=== PATIENT | female | born 1985 | race Caucasian/White ===

== ENCOUNTER 2016-11-15 10:30 | Emergency (ER) | payer BC ==
[2016-11-15 10:34] VITALS: TEMP 97.7; BMI 25.7
--- NOTE | 2016-11-15 10:39 | PDOC ---
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 Patient reports waking up this morning with a sudden onset of pressure in the suprapubic area and the LLQ. She states feels like she has a UTI. Patient reports having several episodes of vomiting and diarrhea today. On interview, patient says she feels dehydrated. Patient says she only drank coffee this morning. Patient reports her bowel movement yesterday was normal. Denies fever, chills, cough Denies headache Denies dysuria, hematuria Denies hematochezia Denies hematemesis Denies chest pain and SOB Drug Allergies: Azithromycin (hives) <Jyoti Montes - Last Filed: 11/15/16 13:45> <Rod Douglas - Last Filed: 11/15/16 14:08> - General Chief Complaint: Pain Stated Complaint: ABD PAIN, DIZZINESS Time Seen by Provider: 11/15/16 10:39 Past History <Jyoti Montes - Last Filed: 11/15/16 13:45> - Past Medical History Other medical history: NONE - Surgical History Neurologic Surgery: No (CLAM SHOVEL OPERATOR SHUNT) - Psycho/Social/Smoking Cessation Hx Anxiety: No Suicidal Ideation: No Smoking History: Current every day smoker Number of Cigarettes Smoked Daily: 5 Information on smoking cessation initiated: No Hx Alcohol Use: Yes (SOCIAL) Drug/Substance Use Hx: No Substance Use Type: None <Rod Douglas - Last Filed: 11/15/16 14:08> - Past Medical History Allergies/Adverse Reactions: Allergies Allergy/AdvReac Type Severity Reaction Status Date / Time azithromycin Allergy Verified 11/15/16 10:34 Home Medications: Ambulatory Orders Hydromorphone [Dilaudid -] 2 mg PO Q6H #28 tablet MDD 5 11/15/16 Ondansetron [Zofran *Odt*] 8 mg SL TID #30 od.tablet 11/15/16 Review of Systems - Review of Systems Able to Perform ROS?: Yes Comments:: 11/15/16 10:55 GENERAL/CONSTITUTIONAL:Dizziness. No fever or chills. No weakness. HEAD, EYES, EARS, NOSE AND THROAT: No change in vision. No ear pain or discharge. No sore throat. CARDIOVASCULAR: No chest pain or shortness of breath. RESPIRATORY: No cough, wheezing, or hemoptysis. GASTROINTESTINAL: Abdominal pain, nausea, vomiting, diarrhea. No constipation. GENITOURINARY: No dysuria, frequency, or change in urination. MUSCULOSKELETAL: Back pain. No joint or muscle swelling or pain. No neck pain. SKIN: No rash NEUROLOGIC: No headache, vertigo, loss of consciousness, or change in strength/ sensation. ENDOCRINE: No increased thirst. No abnormal weight change. HEMATOLOGIC/LYMPHATIC: No anemia, easy bleeding, or history of blood clots. ALLERGIC/IMMUNOLOGIC: No hives or skin allergy. <Des,Jyoti - Last Filed: 11/15/16 13:45> *Physical Exam - Vital Signs Last Vital Signs Temp Pulse Resp BP Pulse Ox 97.7 F 56 L 20 149/59 99 11/15/16 10:31 11/15/16 10:31 11/15/16 10:31 11/15/16 10:31 11/15/16 10:31 - Physical Exam Comments: 11/15/16 10:57 GENERAL: Awake, alert, and fully oriented, in no acute distress HEAD: No signs of trauma EYES: PERRLA, EOMI, sclera anicteric, conjunctiva clear ENT: Auricles normal inspection, hearing grossly normal, nares patent, oropharynx clear without exudates. Moist mucosa NECK: Normal ROM, supple, no lymphadenopathy, JVD, or masses LUNGS: Breath sounds equal, clear to auscultation bilaterally. No wheezes, and no crackles HEART: Regular rate and rhythm, normal S1 and S2, no murmurs, rubs or gallops ABDOMEN: Tenderness on palpation in suprapubic area and LLQ. Soft, normoactive bowel sounds. No guarding, no rebound. No masses EXTREMITIES: Normal range of motion, no edema. No clubbing or cyanosis. No cords, erythema, or tenderness NEUROLOGICAL: Cranial nerves II through XII grossly intact. Normal speech, normal gait SKIN: Warm, Dry, normal turgor, no rashes or lesions noted. <Des,Jyoti - Last Filed: 11/15/16 13:45> - Vital Signs Last Vital Signs Temp Pulse Resp BP Pulse Ox 97.7 F 56 L 20 149/59 99 11/15/16 10:31 11/15/16 10:31 11/15/16 10:31 11/15/16 10:31 11/15/16 10:31 <Rod Douglas - Last Filed: 11/15/16 14:08> ED Treatment Course - LABORATORY CBC & Chemistry Diagram: 11/15/16 10:50 11/15/16 10:50 - RADIOLOGY Radiograph Interpretation: 11/15/16 13:[address] with contrast impression reported by Dr. Ray Bang: 3 mm obstructing calculus left UVJ <Jyoti Montes - Last Filed: 11/15/16 13:45> - LABORATORY CBC & Chemistry Diagram: 11/15/16 10:50 11/15/16 10:50 <Rod Douglas - Last Filed: 11/15/16 14:08> Medical Decision Making - Medical Decision Making 11/15/16 10:59 Patient is a 31 year old female who presents to the ER with suprapubic and LLQ pain since this morning. Patient had episodes of nonbilious/nonbloody vomiting and diarrhea today. Patient's CBC, chemistry, and urine will be taken. Further testing will be determined based on the lab results. 11/15/16 11:[address] ordered to r/o diverticulitis <JyotiJyoti - Last Filed: 11/15/16 13:45> *DC/Admit/Observation/Transfer - Attestations Scribe Attestion: 11/15/16 11:06 Documentation prepared by Jyoti Montes, acting as medical orderly for Rod Douglas DO. <JyotiJyoti - Last Filed: 11/15/16 13:45> - Discharge Dispostion Admit: No - Attestations Physician Attestion: 11/15/16 10:39 I, Dr. Rod Douglas, attest that this document has been prepared under my direction and personally reviewed by me in its entirety. I further attest, that it accurately reflects all work, treatment, procedures and medical decision -making performed by me. <Rod Douglas - Last Filed: 11/15/16 14:08> Diagnosis at time of Disposition: Ureteral calculus, left, Hydroureter on left - Discharge Dispostion Disposition: HOME Condition at time of disposition: Good - Prescriptions Prescriptions: Hydromorphone [Dilaudid -] 2 mg PO Q6H #28 tablet MDD 5 Ondansetron [Zofran *Odt*] 8 mg SL TID #30 od.tablet - Referrals Referrals: Louie Rust MD., MD [Staff Physician] - - Patient Instructions Printed Discharge Instructions: DI for Kidney Stones Additional Instructions: Jordy Alonso this hurts so badly. Please call Dr. Rust first thing in the morning, , to get the next possible appointment. Use the Dilaudid for pain, the Zofran is for nausea/vomiting. Return to us if any problems! Best- Dr. Rod Douglas
[2016-11-15] MEDS ORDERED: ONDANSETRON 4 MG/2 ML VIAL IVPB ONE (10:40)
[2016-11-15] MEDS ORDERED: morphine CARPU-JECT 4 MG/1 ML DISP.SYRIN IVPUSH ONE (10:40)
[2016-11-15] MEDS ORDERED: SODIUM CHLORIDE 1,000 ML IV STA (10:40)
[2016-11-15 10:59] LABS: BASOPHIL 0.5 % (0-2.0); EOSINOPHIL 1.2 % (0-4.5); MCH 29.7 pg (25.7-33.7); MCHC 33.3 g/dl (32.0-36.0); MEAN CELL VOLUME 89.2 fl (80-96); MEAN PLT VOLUME 8.4 fl (7.5-11.1); NEUTROPHILS 71.7 % (42.8-82.8); PLATELET COUNT 360 K/MM3 (134-434); RDW 13.4 % (11.6-15.6); WHITE BLOOD COUNT 14.1 K/mm3 (4.0-10.0)
[2016-11-15] MEDS ORDERED: morphine CARPU-JECT 4 MG/1 ML DISP.SYRIN ONE (11:00)
[2016-11-15] MEDS ORDERED: ONDANSETRON 4 MG/2 ML VIAL ONE ×2 (11:00→13:57)
[2016-11-15 11:21] LABS: URINE APPEARANCE CLEAR; URINE BILIRUBIN NEGATIVE (NEGATIVE); URINE COLOR YELLOW; URINE GLUCOSE (UA) NEGATIVE (NEGATIVE); URINE KETONE TRACE (NEGATIVE); URINE LEUK ESTERASE NEGATIVE (NEGATIVE); URINE NITRITE NEGATIVE (NEGATIVE); URINE PROTEIN NEGATIVE (NEGATIVE); URINE UROBILINOGEN NEGATIVE E.U./dl (0.2-1.0)
[2016-11-15 11:24] LABS: ALBUMIN 3.9 g/dl (3.4-5.0); ALK PHOS 63 U/L (45-117); ANION GAP 11 (8-16); BILIRUBIN,TOTAL 0.3 mg/dL (0.2-1.0); CO2 22 mmol/L (21-32); CREATININE 0.9 mg/dL (0.55-1.02); GLUCOSE,RANDOM 127 mg/dL (74-106); SGOT/AST 12 U/L (15-37); SGPT/ALT 15 U/L (12-78); TOT PROT 7.1 g/dl (6.4-8.2)
[2016-11-15 11:25] LABS: URINE BLOOD 2+ (NEGATIVE)
[2016-11-15 11:27] LABS: URINE BACTERIA RARE /hpf (NONE SEEN); URINE MUCUS RARE; URINE RBC 12 /hpf (0-3); URINE WBC 10 /hpf (3-5)
[2016-11-15] MEDS ORDERED: HYDROmorphone HCL CARPU-JECT 1 MG/1 ML DISP.SYRIN IVPB ONE ×2 (11:46→13:53)
[2016-11-15] MEDS ORDERED: HYDROmorphone HCL CARPU-JECT 1 MG/1 ML DISP.SYRIN ONE ×2 (11:57→13:57)
[2016-11-15] MEDS ORDERED: ONDANSETRON 4 MG/2 ML VIAL IVPUSH ONE (13:53)
[2016-11-15 14:22] VITALS: BP 128/74; PULSE 54
== END 2016-11-15 14:22 | disposition home or self-care (01) ==
LOC: JER 10:30
DX: N23 Unspecified renal colic (principal); Z98.2 Presence of cerebrospinal fluid drainage device; Z87.891 Personal history of nicotine dependence; Z87.442 Personal history of urinary calculi
CPT/HCPCS: 36415; 74177-TC; 80053; 81003; 81015; 83690; 84703; 85025; 86850; 86900; 86901; 99283-25

== ENCOUNTER 2016-11-17 06:45 | Emergency (ER) | payer BC ==
[2016-11-17 06:57] VITALS: BMI 25.7
--- NOTE | 2016-11-17 07:36 | PDOC ---
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 The pain started at 4am, pressure like, 5/10, radiates to L groin, associated with n/v, no aggravating factors and alleviated with dilaudid. She was in the ED 2 days ago (Wednesday) with same complaint and found to have stone in L UVJ. She was discharged home on zofran and dilaudid and spontaneously passed a ~3mm stone on Wednesday. She's scheduled to follow up with Dr. Hennessy on Wednesday. Denies fever, chills, chest pain, sob, urinary or bowel symptoms. Past History - Travel Traveled outside of the country in the last 30 days: No Close contact w/someone who was outside of country & ill: No - Past Medical History Allergies/Adverse Reactions: Allergies Allergy/AdvReac Type Severity Reaction Status Date / Time azithromycin Allergy Verified 11/17/16 06:55 Home Medications: Ambulatory Orders Hydromorphone [Dilaudid -] 2 mg PO Q6H #28 tablet MDD 5 11/15/16 Ondansetron [Zofran *Odt*] 8 mg SL TID #30 od.tablet 11/15/16 Ibuprofen [Motrin -] 600 mg PO TID #21 tablet 11/17/16 Tamsulosin HCl [Flomax] 0.4 mg PO HS #14 capsule 11/17/16 - Surgical History Neurologic Surgery: No (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) - Psycho/Social/Smoking Cessation Hx Anxiety: No Suicidal Ideation: No Smoking History: Never smoked Have you smoked in the past 12 months: No Number of Cigarettes Smoked Daily: 5 Information on smoking cessation initiated: No Hx Alcohol Use: No Drug/Substance Use Hx: No Substance Use Type: None Review of Systems - Review of Systems Able to Perform ROS?: Yes Is the patient limited French proficient: No Constitutional: No: Chills, Fever HEENTM: No: Throat Pain, Throat Swelling Respiratory: No: Cough, Shortness of Breath Cardiac (ROS): No: Chest Pain ABD/GI: Yes: Nausea, Vomiting : Yes: Flank Pain. No: Burning, Dysuria, Hematuria *Physical Exam - Vital Signs Last Vital Signs Temp Pulse Resp BP Pulse Ox 97.9 F 67 20 132/93 98 11/17/16 06:55 11/17/16 06:55 11/17/16 06:55 11/17/16 06:55 11/17/16 06:55 - Physical Exam General Appearance: No: Apparent Distress HEENT: positive: EOMI, ETHEL Neck: positive: Trachea midline, Supple Respiratory/Chest: positive: Lungs Clear, Normal Breath Sounds Cardiovascular: positive: Regular Rhythm, Regular Rate, S1, S2. negative: Murmur Gastrointestinal/Abdominal: positive: Tenderness (LLQ). negative: Distended, Guarding, Rebound Musculoskeletal: negative: CVA Tenderness Extremity: negative: Swelling, Calf Tenderness Medical Decision Making - Medical Decision Making 11/17/16 07:56 31 yo F with h/o kidney stone found in previous admission now c/o lower left flank pain. Patient refused IV access. Will give her zofran oral solution, motrin 600mg for pain, and obtain renal U/S 11/17/16 09:44 Renal U/S negative for stone but positive for mild L hydronephrosis. Will discharge the pt on flomax, motrin and instruct the pt to follow up with her urologist as scheduled. *DC/Admit/Observation/Transfer Diagnosis at time of Disposition: Kidney stone on left side - Discharge Dispostion Disposition: HOME Condition at time of disposition: Improved Admit: No - Prescriptions Prescriptions: Tamsulosin HCl [Flomax] 0.4 mg PO HS #14 capsule Ibuprofen [Motrin -] 600 mg PO TID #21 tablet - Referrals Referrals: Louie Rust MD., MD [Staff Physician] - - Patient Instructions Printed Discharge Instructions: DI for Kidney Stones Additional Instructions: Your symptoms are most likely caused by kidney stone. Please take the flomax every night for 14 days and motrin 600mg every 8 hours, as needed. You also need to follow up with Dr. Rust as scheduled for further management of kidney stone. Come in to the Emergency Room if your symptoms get worse.
--- NOTE | 2016-11-17 07:40 | PDOC ---
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 Pain woke her from sleep at 4am, colicky pain to L flank radiating to L groin. She had similar pain when she was in the ED 2 days ago, diagnosed with kidney stone. Has f/u appt with Dr. Rust. - Physicial Exam PE: GENERAL: Awake, alert, and fully oriented. Appears uncomfortable. HEAD: No signs of trauma EYES: PERRLA, EOMI, sclera anicteric, conjunctiva clear ENT: Auricles normal inspection, hearing grossly normal, nares patent, oropharynx clear without exudates. Moist mucosa NECK: Normal ROM, supple, no lymphadenopathy, JVD, or masses LUNGS: Breath sounds equal, clear to auscultation bilaterally. No wheezes, and no crackles HEART: Regular rate and rhythm, normal S1 and S2, no murmurs, rubs or gallops ABDOMEN: Soft, normoactive bowel sounds. No guarding, no rebound. No masses. + L CVAT and LLQ tenderness. EXTREMITIES: Normal range of motion, no edema. No clubbing or cyanosis. No cords, erythema, or tenderness NEUROLOGICAL: Cranial nerves II through XII grossly intact. Normal speech, normal gait SKIN: Warm, Dry, normal turgor, no rashes or lesions noted. - Medical Decision Making Pt presents with similar pain to 2 days ago. She had CT 2 days ago showing stone at the UVJ. Will obtain labs, UA, and ultrasound (since she had recent CT) . Analgesia, reassess.
[2016-11-17] MEDS ORDERED: IBUPROFEN 600 MG TABLET (FP) PO ONE ×2 (07:49→08:09)
[2016-11-17] MEDS ORDERED: ONDANSETRON HCL 4 MG/5 ML ML PO ONE (07:49)
[2016-11-17] MEDS ORDERED: ONDANSETRON *ODT* 4 MG TABLET SL ONE (08:04)
[2016-11-17 08:07] LABS: URINE APPEARANCE SLCLOUDY; URINE BILIRUBIN NEGATIVE (NEGATIVE); URINE COLOR YELLOW; URINE GLUCOSE (UA) NEGATIVE (NEGATIVE); URINE KETONE NEGATIVE (NEGATIVE); URINE LEUK ESTERASE NEGATIVE (NEGATIVE); URINE NITRITE NEGATIVE (NEGATIVE); URINE PROTEIN NEGATIVE (NEGATIVE); URINE UROBILINOGEN NEGATIVE E.U./dl (0.2-1.0)
[2016-11-17] MEDS ORDERED: ONDANSETRON *ODT* 4 MG TABLET ONE (08:09)
[2016-11-17 08:16] LABS: URINE BLOOD 2+ (NEGATIVE)
[2016-11-17 08:18] LABS: URINE MUCUS RARE; URINE RBC 34 /hpf (0-3); URINE WBC 8 /hpf (3-5)
[2016-11-17 11:11] VITALS: BP 118/76; PULSE 68; TEMP 98
== END 2016-11-17 10:47 | disposition home or self-care (01) ==
LOC: JER 06:45
DX: N23 Unspecified renal colic (principal); Z98.2 Presence of cerebrospinal fluid drainage device; Z87.891 Personal history of nicotine dependence
CPT/HCPCS: 76775-TC; 81003; 81015; 84703; 99282-25